=== PATIENT | female | born 1980 | race African-American/Black ===

== ENCOUNTER 2017-11-03 18:28 | Emergency (ER) | payer OTHER ==
[2017-11-03 18:39] VITALS: BP 114/77; PULSE 80; TEMP 98; BMI 36.0
--- NOTE | 2017-11-03 19:35 | PDOC ---
History of Present Illness - General Chief Complaint: Chest Pain Stated Complaint: CHEST PAIN Time Seen by Provider: 11/03/17 19:04 - History of Present Illness Initial Comments: 11/03/17 19:25 Pt is a 37 F with PMH cholecystitis s/p cholecystectomy who presents to ED with left BACK pain radiating to the left anterior chest since . The pain lasts a few seconds and is closely related to movement of the torso and is reproducible when pushing on the chest. Pt denies CP/SOB with activity. Pt took Motrin on night, which helped. Pt states pain is 3 at baseline and goes to 8 when she moves. Pt has had this pain before: first episode was 3 weeks ago. Past History - Past Medical History Allergies/Adverse Reactions: Allergies Allergy/AdvReac Type Severity Reaction Status Date / Time No Known Allergies Allergy Verified 11/03/17 18:30 Home Medications: Ambulatory Orders Ibuprofen [Motrin -] 600 mg PO TID PRN #21 tablet 11/03/17 Methocarbamol [Robaxin -] 500 mg PO TID PRN #21 tablet 11/03/17 Anemia: No Asthma: No Cancer: No Cardiac Disorders: No CVA: No COPD: No CHF: No Dementia: No Diabetes: No GI Disorders: (Gallstones, polyps) Disorders: No HTN: No Hypercholesterolemia: No Liver Disease: No Seizures: No Thyroid Disease: No - Surgical History Abdominal Surgery: (polyp removal) Appendectomy: No Cardiac Surgery: No Cholecystectomy: Yes Lung Surgery: No Neurologic Surgery: No Orthopedic Surgery: No - Family Disease History Family Disease History: Diabetes: Father, Other: Mother (CVA 2009) - Immunization History Immunization Up to Date: Yes - Suicide/Smoking/Psychosocial Hx Smoking History: Never smoked Have you smoked in the past 12 months: No Information on smoking cessation initiated: No Hx Alcohol Use: Yes Drug/Substance Use Hx: No Substance Use Type: None Hx Substance Use Treatment: No Review of Systems - Review of Systems Able to Perform ROS?: Yes Is the patient limited Egyptian proficient: No Constitutional: Yes: Symptoms Reported. No: Chills, Diaphoresis, Fever, Loss of Appetite HEENTM: Yes: Symptoms Reported. No: Eye Pain, Blurred Vision Respiratory: Yes: Symptoms reported. No: Cough, Shortness of Breath, Wheezing Cardiac (ROS): Yes: Symptoms Reported, Chest Pain. No: Edema, Irregular Heart Rate, Lightheadedness, Palpitations, Syncope, Chest Tightness ABD/GI: Yes: Symptoms Reported. No: Abdominal Distended, Abd. Pain w/ defecation, Diarrhea, Difficulty Swallowing : Yes: Symptoms Reported. No: Burning, Dysuria, Discharge, Frequency, Hematuria Musculoskeletal: Yes: Symptoms Reported, Back Pain (L upper back), Joint Pain ( L shoulder) Integumentary: Yes: Symptoms Reported. No: Rash Neurological: Yes: Symptoms reported. No: Numbness, Tingling *Physical Exam - Vital Signs Last Vital Signs Temp Pulse Resp BP Pulse Ox 98.0 F 80 18 114/77 100 11/03/17 18:36 11/03/17 18:36 11/03/17 18:36 11/03/17 18:36 11/03/17 18:36 - Physical Exam General Appearance: Yes: Nourished, Appropriately Dressed. No: Apparent Distress HEENT: positive: EOMI, Normal ENT Inspection Neck: positive: Supple. negative: Tender Respiratory/Chest: positive: Chest Tender (Left ant/post/lat chest TTP), Lungs Clear, Normal Breath Sounds. negative: Respiratory Distress, Rapid RR, Crackles , Rales Cardiovascular: positive: Regular Rhythm, Regular Rate, S1, S2. negative: Edema , JVD, Murmur Vascular Pulses: Dorsalis-Pedis (R): 2+, Doralis-Pedis (L): 2+ Gastrointestinal/Abdominal: positive: Normal Bowel Sounds, Flat, Soft. negative : Tender Musculoskeletal: positive: Normal Inspection. negative: CVA Tenderness Extremity: positive: Normal Capillary Refill, Normal Inspection, Normal Range of Motion, Pelvis Stable Medical Decision Making - Medical Decision Making 11/03/17 19:38 Pt is a 37F w/ PMH cholecystectomy who presents to ED with left back pain with radiation to the chest. Low suspicion for cardiac disease; pain lasts seconds, is reproducible, related to movement of the chest, unrelated to activity, pt is nonsmoker, non-diabetic, non-hypertensive. Family history of DM in father and stroke in mother. -EKG normal -Robaxin -Motrin -Toradol IM 11/03/17 20:59 Pt still having pain despite initial therapy. -Percocet -CXR 11/03/17 21:48 CXR neg for acute pathology Pt stable for discharge *DC/Admit/Observation/Transfer Diagnosis at time of Disposition: Chest pain in adult - Discharge Dispostion Disposition: HOME Condition at time of disposition: Stable Admit: No - Prescriptions Prescriptions: Ibuprofen [Motrin -] 600 mg PO TID PRN #21 tablet PRN Reason: Pain Methocarbamol [Robaxin -] 500 mg PO TID PRN #21 tablet PRN Reason: Pain - Referrals Referrals: Lydia Morrison MD [Primary Care Provider] - - Patient Instructions Printed Discharge Instructions: DI for Chest Pain Additional Instructions: Please take all your prescription medications as directed. Please follow up with your primary medical doctor within 1 week. If you develop new symptoms or if your symptoms get worse, please return to the emergency department. - Post Discharge Activity
[2017-11-03] MEDS ORDERED: IBUPROFEN 600 MG TABLET (FP) PO ONE ×2 (19:42→20:11)
[2017-11-03] MEDS ORDERED: METHOCARBAMOL 500 MG TABLET PO ONE (19:43)
[2017-11-03] MEDS ORDERED: KETOROLAC TROMETHAMINE 60 MG/2 ML VIAL IM ONE (19:43)
[2017-11-03] MEDS ORDERED: KETOROLAC TROMETHAMINE 60 MG/2 ML VIAL ONE (20:11)
[2017-11-03] MEDS ORDERED: METHOCARBAMOL 500 MG TABLET ONE (20:11)
[2017-11-03] MEDS ORDERED: ACETAMINOPHEN 325 MG TABLET (FP) PO ONE (20:57)
[2017-11-03] MEDS ORDERED: ACETAMINOPHEN 325 MG TABLET (FP) ONE (21:01)
--- NOTE | 2017-11-03 21:45 | PDOC ---
Attending Attestation - Resident Resident Name: Lino Mai - ED Attending Attestation I have performed the following: I have examined & evaluated the patient, The case was reviewed & discussed with the resident, I agree w/resident's findings & plan - HPI HPI: 11/03/17 21:41 Pt comes with musculoskeletal pain radiating from her back to her chest. She has no PMHx. She has normal vitals. She doesn't recall lifting anything heavy or sleeping in a weird position. - Physicial Exam PE: 11/03/17 21:43 Agree with resident exam - Medical Decision Making 11/03/17 21:44 CXR normal, exam normal. Pt feeling improvement with toradol, robaxin and tylenol/percocet. Home with motrin and robaxin.
--- NOTE | 2017-11-06 15:14 | EKG ---
Test Reason : Blood Pressure : / mmHG Vent. Rate : 084 BPM Atrial Rate : 084 BPM P-R Int : 142 ms QRS Dur : 084 ms QT Int : 366 ms P-R-T Axes : 054 032 055 degrees QTc Int : 432 ms NORMAL SINUS RHYTHM T WAVE ABNORMALITY, CONSIDER ANTERIOR ISCHEMIA ABNORMAL ECG WHEN COMPARED WITH ECG OF 09-OCT-2015 11:52, NO SIGNIFICANT CHANGE WAS FOUND Confirmed by Neto Porras MD ([id number]) on 11/06/2017 3:13:53 PM Referred By: Confirmed By:Neto Porras MD
== END 2017-11-03 22:33 | disposition home or self-care (01) ==
LOC: JER 18:28
PROC: 3E0233Z Introduction of Anti-inflammatory into Muscle, Percutaneous Approach (ICD-10-PCS; principal; 2017-11-03)
DX: R07.89 Other chest pain (principal)
CPT/HCPCS: 71046-TC; 93005; 93010; 99282-25

== ENCOUNTER 2018-05-15 12:02 | Emergency (ER) | payer OTHER ==
--- NOTE | 2018-05-15 12:06 | PDOC ---
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 and noted severe bilateral thigh pain No back pain No bowel or bladder incontinence No direct trauma to the back No numbness of the extremities Pt is concerned because her symptoms make her feel like she has difficulty walking she has pain when she attempts to stand up from a seated position She feels pain in her waiste Pain is rated 8-9/10 No prior episodes like this PMH: Denies PSH: Cholecystectomy Meds: Denies ALL: NKDA Social: denies drug or cigarette use FH: non contributory ROS: GENERAL/CONSTITUTIONAL: No: fever, chills CARDIOVASCULAR: No: chest pain, lightheadedness, palpitations, syncope RESPIRATORY: No: cough, shortness of breath, wheezing, hemoptysis, stridor. GASTROINTESTINAL: No: nausea, vomiting, diarrhea, abdominal cramping, rectal bleeding, constipation. GENITOURINARY: No: dysuria, hematuria, frequency, urgency, flank pain. MUSCULOSKELETAL: Yes: bilateral thigh pain, hip pain, waist pain No: back pain, neck pain, joint pain, muscle swelling or pain SKIN: No: lesions, pallor, rash or easy bruising. NEUROLOGIC: No: headache, vertigo, paresthesias, weakness ENDOCRINE: No: unexplained weight gain or loss PE: GENERAL: The patient is in no acute distress. HEAD: Normal EYES: PERRLA, EOMI, sclera anicteric, conjunctiva clear. ENT: Ears normal, nares patent, oropharynx clear without exudates. Moist mucous membranes. NECK: Normal range of motion LUNGS: Breath sounds equal, clear to auscultation bilaterally. No wheezes, and no crackles. HEART:Regular rate and rhythm, normal S1 and S2 without murmur, rub or gallop. ABDOMEN: Soft, nontender, normoactive bowel sounds. No abdominal tenderness to palpation EXTREMITIES: Normal range of motion, no edema. 2+ DP, 2+ PT bilaterally NEUROLOGICAL: Cranial nerves II through XII grossly intact. Normal speech. No focal neurological deficits. Neurologic: The patient is awake, alert, oriented x3. Gross motor and sensory exam is found to be intact. Muscle strength is 5/5 lower extremities bilaterally (L4,L5, S1). DTRs, patellar , and Achilles are 1 to 2+ equal bilaterally throughout. Sensation intact throughout (L4, L5, S1) Motor: L1 - Crossing leg --> painful to perform this examination L2/3 - Hip flexion - intact L4 - Kicking out - intact L5 - dorsiflexing ankle and great toe - intact S1 - plantar flex - intact Sensation through out the lower extremity intact and equal in both legs MUSCULOSKELETAL: Back non-tender to palpation SKIN: Warm, Dry, normal turgor, no rashes or lesions noted. 05/15/18 13:05 05/15/18 13:36 05/15/18 13:40 05/15/18 13:42 05/15/18 14:57 Past History - Past Medical History Allergies/Adverse Reactions: Allergies Allergy/AdvReac Type Severity Reaction Status Date / Time No Known Allergies Allergy Verified 05/15/18 12:04 Home Medications: Ambulatory Orders Hydrocodone/Acetaminophen [Vicodin 5-300 mg Tablet] 1 each PO BID PRN #10 tablet MDD 2 05/15/18 Methocarbamol [Robaxin -] 500 mg PO TID PRN #30 tablet 05/15/18 Naproxen [Naprosyn -] 500 mg PO BID PRN #14 tablet 05/15/18 Anemia: No Asthma: No Cancer: No Cardiac Disorders: No CVA: No COPD: No CHF: No Dementia: No Diabetes: No GI Disorders: (Gallstones, polyps) Disorders: No HTN: No Hypercholesterolemia: No Liver Disease: No Seizures: No Thyroid Disease: No - Surgical History Abdominal Surgery: (polyp removal) Appendectomy: No Cardiac Surgery: No Cholecystectomy: Yes Lung Surgery: No Neurologic Surgery: No Orthopedic Surgery: No - Family Disease History Family Disease History: Diabetes: Father, Other: Mother (CVA 2009) - Immunization History Immunization Up to Date: Yes - Suicide/Smoking/Psychosocial Hx Smoking History: Never smoked Have you smoked in the past 12 months: No Hx Alcohol Use: Yes Drug/Substance Use Hx: No Substance Use Type: None Hx Substance Use Treatment: No Medical Decision Making - Medical Decision Making 05/15/18 13:46 Pt presents to the ER with bilateral thigh pain Pt has no back pain to suggest sciatica ? Spinal stenosis ? disc herniation Will do: Xray lumbar and pelvis Will give pain medications Follow up with PMD 05/15/18 14:47 Pain improved after flexeril Xrays demonstrate no fracture or dislocation D/c to home Follow up with PMD or Neurology within 1 week Return to the ER with persistent or worsening symptoms *DC/Admit/Observation/Transfer Diagnosis at time of Disposition: Bilateral thigh pain - Discharge Dispostion Disposition: HOME Condition at time of disposition: Stable Decision to Admit order: No - Prescriptions Prescriptions: Hydrocodone/Acetaminophen [Vicodin 5-300 mg Tablet] 1 each PO BID PRN #10 tablet MDD 2 PRN Reason: Severe Pain Methocarbamol [Robaxin -] 500 mg PO TID PRN #30 tablet PRN Reason: Lower Back Pain Naproxen [Naprosyn -] 500 mg PO BID PRN #14 tablet PRN Reason: Pain - Referrals Referrals: Marla Sheikh MD [Staff Physician] - Hilton Matute MD [Staff Physician] - - Patient Instructions Printed Discharge Instructions: DI for Musculoskeletal Pain Additional Instructions: Ms Churchill Thank you for coming Into the emergency department today Please take medications as prescribed for pain. Please of bleed excessive flexion or extension of your back. Please follow up with your primary care physician within 1 week, she is aware that you're in the emergency Department today. You can also follow up with the neurologist referred in your discharge packet Please return to emergency department for progression/worsening of new symptoms , any weakness in the lower extremities, any inability to inability, any incontinence, any fever or chills, any other concerns or complaints - Post Discharge Activity Forms/Work/School Notes: Back to Work
[2018-05-15 12:10] VITALS: BP 118/73; PULSE 84; TEMP 98.7; BMI 38.3
[2018-05-15] MEDS ORDERED: IBUPROFEN 600 MG TABLET (FP) PO ONE (12:20)
[2018-05-15] MEDS ORDERED: CYCLOBENZAPRINE HCL 10 MG TABLET (FP) PO ONE (12:20)
[2018-05-15] MEDS ORDERED: CYCLOBENZAPRINE HCL 10 MG TABLET (FP) ONE (12:30)
== END 2018-05-15 15:26 | disposition home or self-care (01) ==
LOC: FER 12:02
DX: M79.651 Pain in right thigh (principal); M79.652 Pain in left thigh
CPT/HCPCS: 72100-TC-FY; 72170-TC-FY; 84703; 99282-25

== ENCOUNTER 2019-05-29 23:26 | Emergency (ER) | payer BC, OTHER ==
[2019-05-29 23:32] VITALS: TEMP 97.2; BMI 36.0
--- NOTE | 2019-05-30 00:28 | PDOC ---
History of Present Illness - General Chief Complaint: Psychiatric Stated Complaint: CHEST PAIN & SOB Time Seen by Provider: 05/30/19 00:22 - History of Present Illness Initial Comments: 38yo F hx cholecystitis (s/p cholecystectomy) presents from home c/o anxiety x2wks with chest pain and shortness of breath this PM. Pt has no hx of anxiety or panic attacks. Pt states she has had severe anxiety for the past 2 weeks and does not know why. Denies any similar sx in the past, inciting events, psych hx , psychiatrist, steroid use, change in medications. Pt states it is hard to describe her symptoms but she can best describe it as anxiety. She states she has been very irritable, tired, "not self", tingling arms, intermittent chest pain, and abdominal pain (but she's been on her period so she thought her abdominal pain was due to that). also states that pt has been very irritable. Pt has and 4 kids. Pt states she feels safe at home. Denies Si/HI/AVH. Pt states that this evening she ate at 2200 and then suddenly felt lightheaded, heart racing, L arm and leg "weird feeling", L shoulder tightness, and a lump/pressure in her throat and chest substernally. These sx resolved on their own. Currently she only c/o L shoulder/neck/arm pain/tightness and fatigue. Denies sx similar in past, F/C, N/V, D/C, LEO, dysuria, hematuria, cough , numbness, focal weakness. Denies cardiac hx, FHx of early CAD, OCP/estrogen use, recent travel, recent surgeries, hx DVT/PE, hx cancer. Father had prostate CA. Past History - Past Medical History Allergies/Adverse Reactions: Allergies Allergy/AdvReac Type Severity Reaction Status Date / Time No Known Allergies Allergy Verified 05/29/19 23:32 Home Medications: Ambulatory Orders Hydrocodone/Acetaminophen [Vicodin 5-300 mg Tablet] 1 each PO BID PRN #10 tablet MDD 2 05/15/18 Methocarbamol [Robaxin -] 500 mg PO TID PRN #30 tablet 05/15/18 Naproxen [Naprosyn -] 500 mg PO BID PRN #14 tablet 05/15/18 Anemia: No Asthma: No Cancer: No Cardiac Disorders: No CVA: No COPD: No CHF: No Dementia: No Diabetes: No GI Disorders: (Gallstones, polyps) Disorders: No HTN: No Hypercholesterolemia: No Liver Disease: No Seizures: No Thyroid Disease: No - Surgical History Abdominal Surgery: (polyp removal) Appendectomy: No Cardiac Surgery: No Cholecystectomy: Yes Lung Surgery: No Neurologic Surgery: No Orthopedic Surgery: No - Family Disease History Family Disease History: Diabetes: Father, Other: Mother (CVA 2009) - Immunization History Immunization Up to Date: Yes - Suicide/Smoking/Psychosocial Hx Smoking History: Never smoked Have you smoked in the past 12 months: No Hx Alcohol Use: Yes Drug/Substance Use Hx: No Substance Use Type: None Hx Substance Use Treatment: No Review of Systems - Review of Systems Comments:: 06/02/19 12:39 Constitutional: Positive for fatigue, malaise. Negative for chills, fever. HENT: Negative for sore throat, rhinorrhea, congestion. Eyes: Negative for visual disturbance. Respiratory: Positive for shortness of breath. Negative for cough, and wheezing. Cardiovascular: Positive for chest pain. Negative for palpitations, and leg swelling. Gastrointestinal: Positive for abdominal pain. Negative for blood in stool, constipation, diarrhea, nausea, and vomiting. Genitourinary: Negative for dysuria, flank pain, and hematuria. Musculoskeletal: Negative for myalgias, back pain, and neck pain. Skin: Negative for rash. Neurological: Positive for light-headedness and tingling. Negative for dizziness , syncope, weakness, and headaches. Psychiatric/Behavioral: Positive for anxiety and "not self". Denies SI/HI/AVH. Negative for confusion. *Physical Exam - Vital Signs Last Vital Signs Temp Pulse Resp BP Pulse Ox 97.2 F L 91 H 18 128/81 100 05/29/19 23:28 05/29/19 23:28 05/29/19 23:28 05/29/19 23:28 05/29/19 23:28 - Physical Exam Comments: Gen: Alert, NAD, obese, poor eye contact, tired-appearing HEENT: PERRL, EOMI, MMM, NCAT. No conjunctival pallor. Sclera are non-icteric. Oropharynx is clear. CV: Regular rate and rhythm. No murmurs, rubs, or gallops. PULM: No resp distress. CTAB, no wheezes, rales, or rhonchi. ABD: soft, NT/ND, no rebound tenderness or guarding, no CVA tenderness. BACK: No TTP of c/t/l-spine. No step-offs or deformities. MSK: No bony deformities. 2+ pulses in all extremities. NEURO: AAOx3. PERRL. CN 2-12 intact. 5/5 strength in all extremities. Sensation to light touch intact in all extremities. No pronator drift. No dysmetria. No dysdiadochokinesia. No abnormal nystagmus. No skew deviation. Normal gait. EXTREMITIES: No cyanosis. No clubbing. No edema. No calf tenderness. PSYCH: Poor eye contact. Depressed mood, normal thought pattern. No SI/HI/AVH. SKIN: Warm and dry. Normal capillary refill. No rashes. No jaundice. Heart Score/ECG Review - ECG Impressions Comment:: 2333: SR w/occasional PVCs (new since 11/03/17), 86bpm, normal axis, no STEs/TWIs ED Treatment Course - LABORATORY CBC & Chemistry Diagram: 05/30/19 01:11 05/30/19 01:11 Medical Decision Making - Medical Decision Making 05/30/19 02:12 38yo F hx cholecystitis (s/p cholecystectomy) and no psychiatric history presents from home with irritability, fatigue, and anxiety x2wks with intermittent episodes of chest pain, shortness of breath, tingling and tightness in L arm/legs, lump/pressure in chest/throat, palpitations, and lightheadedness. Hemodynamically stable, afebrile, obese, poor eye contact, tired-appearing, benign CV/lung/abdomen exam. from to ask again if she feels safe at home. Pt denies any abuse. Pt states she feels safe at home. Fatigue, irritability, anxiety, and not feeling self sound most like a psychiatric illness such as depression or anxiety. No SI/HI/AVH concerning for emergent psychiatric issue. Will refer to a psychiatrist. First r/o organic etiologies of depression including infection, metabolic derangement, cardiac etiology, , intoxication, and thyroid abnormality with labs. Intermittent episodes of chest pain and shortness of breath concerning for cardiac or pulmonary etiology such as ACS/VT, arrythmia, CHF, COPD, or PNA; low pre-trop/EKG HEART score of 1 (for obesity) - r/o with cardiac profile, EKG, CXR. Wells score 0 and 0 PERC criteria - no further testing indicated for PE. Also consider GI etiology of chest/abdominal pain such as pancreatitis or GERD, although of low concern due to benign abdomen exam and no complaints of abdominal pain currently - r/o with labs. -EKG -CBC, CMP, Coags, Cardiac profile, Lipase, TSH, BNP, UA/UC, UTox, Upreg, Mg, Phos -CXR -Dispo: pending w/u EKG reviewed. SR w/occasional PVCs (new since 11/03/17), 86bpm, normal axis, no STEs/TWIs CXR: no acute chest pathology Labs reviewed. No concerning findings. UA 2+ blood, 1 RBC, likely due to period. Pt tired but states she's feeling better. Denies any current complaints. Will dc home with psychiatric f/u. Return precautions given. Pt understands all dc instructions and all questions were answered. *DC/Admit/Observation/Transfer Diagnosis at time of Disposition: Anxiety - Discharge Dispostion Disposition: HOME Condition at time of disposition: Improved Decision to Admit order: No - Referrals Referrals: Lydia Morrison MD [Primary Care Provider] - Mery Rolle MD [Staff Physician] - - Patient Instructions Printed Discharge Instructions: DI for Depression -- Adult, DI for Anxiety -- Adult Additional Instructions: You have been seen in the Emergency Department for your anxiety and not feeling well. Your EKG, chest X-ray, and labs, including Troponin (a heart enzyme), show no signs concerning for an emergent condition such as a heart attack. Your symptoms are concerning for a mental illness such as depression though. We have given you a referral to a Psychiatrist for further evaluation. Give his office a call in the morning and set up an appointment for this week. Also follow-up with your primary care doctor within 1 week. Return to the ED immediately if you experience chest pain, difficulty breathing , dizziness, or any other new or worsening symptom. Also call 911 or return to the ED immediately if you experience thoughts of hurting yourself or others or if you don't feel safe at home. - Post Discharge Activity
--- NOTE | 2019-05-30 00:50 | PDOC ---
Attending Attestation - Resident Resident Name: Noreen Baker - ED Attending Attestation I have performed the following: I have examined & evaluated the patient, The case was reviewed & discussed with the resident, I agree w/resident's findings & plan, Exceptions are as noted - HPI HPI: 05/30/19 00:50 38F phx spring non-specific complaints, primarily sob - Physicial Exam PE: 06/05/19 19:21 Agree with exam as documented by resident - Medical Decision Making 06/05/19 19:21 C/o a spectrum on non-specific symptoms but includes chest pain and SOB. Presentation is not specifically concerning for worrisome pathology but will evaluate CP/SOB f/u labs, cxr, ekg re-eval symptomatic improvement, no concerning findings confirmed safe discharge dc home
[2019-05-30 01:45] LABS: EOS % 1.8 % (0-4.5); MEAN PLT VOLUME 11.3 fl (7.5-11.1)
[2019-05-30 01:48] LABS: BASO % 0.8 % (0-2.0); HEMATOCRIT 40.6 % (32.4-45.2); HEMOGLOBIN 13.5 GM/dL (10.7-15.3); LYMPH % 38.9 % (8-40); MCH 30.7 pg (25.7-33.7); MCHC 33.3 g/dl (32.0-36.0); MONO % 7.8 % (3.8-10.2); NEUT % 50.7 % (42.8-82.8); PLATELET COUNT 169 K/MM3 (134-434); RBC 4.41 M/mm3 (3.60-5.2); WHITE BLOOD COUNT 5.5 K/mm3 (4.0-10.0)
[2019-05-30 01:55] LABS: COCAINE, UR NEGATIVE ng/ml (CUTOFF=300); EPI CELLS 2.5 /HPF (0-5/HPF); HYALINE CASTS 3 /lpf (0-8); METHADONE, UR NEGATIVE ng/ml (CUTOFF=300); OPIATES, URI NEGATIVE ng/ml (CUTOFF=300); PH,URINE 6.5 (5.0-8.0); PHENCYCLIDINE,URINE NEGATIVE ng/ml (CUTOFF=25); URINE AMPHETAMINES NEGATIVE ng/ml (CUTOFF=500); URINE APPEARANCE CLEAR; URINE BACTERIA 128.6 /hpf (NEGATIVE); URINE BARBITURATES NEGATIVE ng/ml (CUTOFF=200); URINE BENZODIAZEPINES NEGATIVE ng/ml (CUTOFF=200); URINE BILIRUBIN NEGATIVE (NEGATIVE); URINE COLOR YELLOW; URINE GLUCOSE (UA) NEGATIVE (NEGATIVE); URINE KETONE TRACE (NEGATIVE); URINE LEUK ESTERASE NEGATIVE (NEGATIVE); URINE NITRITE NEGATIVE (NEGATIVE); URINE PROTEIN NEGATIVE (NEGATIVE); URINE RBC 1 /hpf (0-4); URINE UROBILINOGEN 0.2 mg/dL (0.2-1.0); URINE WBC 3 /hpf (0-5)
[2019-05-30 02:13] LABS: ALBUMIN 3.9 g/dl (3.4-5.0); ALK PHOS 71 U/L (45-117); ANION GAP 7 MMOL/L (8-16); BILIRUBIN,TOTAL 0.3 mg/dL (0.2-1); BLOOD UREA NITROGEN 16.3 mg/dL (7-18); CALCIUM 9.5 mg/dL (8.5-10.1); CHLORIDE 106 mmol/L (98-107); CO2 30 mmol/L (21-32); CREATININE 0.9 mg/dL (0.55-1.3); GLUCOSE,RANDOM 108 mg/dL (74-106); LIPASE 138 U/L (73-393); MAGNESIUM 2.2 mg/dL (1.8-2.4); PHOSPHOROUS 3.6 mg/dL (2.5-4.9); POTASSIUM 4.3 mmol/L (3.5-5.1); SGOT/AST 14 U/L (15-37); SGPT/ALT 26 U/L (13-61); SODIUM 143 mmol/L (136-145); TOT PROT 7.4 g/dl (6.4-8.2)
[2019-05-30 03:22] VITALS: BP 127/84; PULSE 66
[2019-05-30 03:41] LABS: INR 1.11 (0.83-1.09); PROTHROMBIN TIME (PATIENT) 13.1 SEC (9.7-13.0)
--- NOTE | 2019-06-01 10:37 | EKG ---
Test Reason : Blood Pressure : / mmHG Vent. Rate : 086 BPM Atrial Rate : 086 BPM P-R Int : 164 ms QRS Dur : 082 ms QT Int : 372 ms P-R-T Axes : 059 047 058 degrees QTc Int : 445 ms SINUS RHYTHM WITH OCCASIONAL PREMATURE VENTRICULAR COMPLEXES OTHERWISE NORMAL ECG WHEN COMPARED WITH ECG OF 03-NOV-2017 18:33, PREMATURE VENTRICULAR COMPLEXES ARE NOW PRESENT Confirmed by Ashley Szymanski ([id number]) on 06/01/2019 10:37:34 AM Referred By: Confirmed By:Ashley Szymanski
== END 2019-05-30 04:05 | disposition home or self-care (01) ==
LOC: JER 23:26
DX: F41.9 Anxiety disorder, unspecified (principal)
CPT/HCPCS: 36415; 71046-TC-FY; 80053; 80307; 81003; 82550; 82553; 83690; 83735; 83880; 84100; 84443; 84484; 84703; 85025; 85610; 85730; 87086; 93005; 93010; 99283-25